=== PATIENT | male | born 1975 | race Caucasian/White ===

== ENCOUNTER 2017-06-11 11:05 | Emergency (ER) | payer MEDICAID, OTHER ==
[~2017-06-11] VITALS: Wt 80.0 kg
[2017-06-11] MEDS ORDERED: IBUPROFEN 600 MG TAB PO STA (11:25)
--- NOTE | 2017-06-11 11:57 | RADRPT ---
PROCEDURE: XR Chest. CLINICAL INDICATION: chest pain TECHNIQUE: PA and lateral views of the chest were obtained COMPARISON: None FINDINGS: The heart and mediastinum are within normal limits. The lungs are clear. There is no pleural effusion or pneumothorax. There is mild scoliosis of the thoracic spine. RPTAT: AA IMPRESSION: Mild scoliosis of the thoracic spine. Otherwise unremarkable. .Kulwant Joe MD, MD Date Time Electronically viewed and signed by .Kulwant Joe MD, on 06/11/2017 11:57 .S/
[2017-06-11] MEDS ORDERED: IBUP-1542 PO (12:07)
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
== END 2017-06-11 13:06 | disposition home or self-care (01) ==
LOC: FTE 11:05
DX: S29.001A Unspecified injury of muscle and tendon of front wall of thorax, initial encounter (principal); R07.89 Other chest pain; V89.2XXA Person injured in unspecified motor-vehicle accident, traffic, initial encounter
CPT/HCPCS: 71020; Z7502; Z7610